=== PATIENT | male | born 1980 | race Caucasian/White ===

== ENCOUNTER 2020-03-23 08:54 | Emergency (ER) | payer OTHER, SELFPAY ==
[2020-03-23] VITALS (9 sets, daily range): BP systolic 162–196; BP diastolic 88–118; PULSE 75–92; RESP 16; TEMP 37.3; O2SAT 95–99; BMI 25.0
--- NOTE | 2020-03-23 09:12 | DI.CT.S_ITS ---
PROCEDURE: CT MASTOID TEMPORAL INDICATIONS: right pain, vestibular neuritis COMPARISON: None. TECHNIQUE: Noncontrast 0.6 mm thick direct axial and coronal sections acquired through each temporal bone separately. FINDINGS: Image quality: Excellent. RIGHT: External auditory canal: Canal has a normal appearance. Middle ear: The middle ear structures, including the ossicles and tympanic membrane, appear normal. No abnormal fluid or soft tissue density. Inner ear: Inner ear is normally formed and appears unremarkable. Facial nerve appears normal throughout is course. Internal auditory canal is normal in caliber with no CT evidence of a soft tissue mass or bony erosion. Mastoids: Mastoid air cells are clear. LEFT: External auditory canal: Canal has a normal appearance. Middle ear: The middle ear structures, including the ossicles and tympanic membrane, appear normal. No abnormal fluid or soft tissue density. Inner ear: Inner ear is normally formed and appears unremarkable. Facial nerve appears normal throughout its course. Internal auditory canal is normal in caliber with no CT evidence of a soft tissue mass or bony erosion. Mastoids: Mastoid air cells are clear. MISCELLANEOUS: Visualized surrounding bones appear unremarkable. Visualized intracranial structures, including the cerebellopontine angle cisterns, appear normal. IMPRESSION: Normal CT of the temporal bones. Dictated by: Facundo Vickers M.D. on 03/23/2020 at 10:25 Approved by: Facundo Vickers M.D. on 03/23/2020 at 10:27
--- NOTE | 2020-03-23 09:21 | ED_ITS ---
HPI - Headache General Chief Complaint: Headache Stated Complaint: right sided vestibulor neuronitis x3 days Time Seen by Provider: 03/23/20 09:02 Source: patient Mode of arrival: Ambulatory Limitations: no limitations History of Present Illness HPI Narrative: Patient is a 39-year-old male with recent diagnosis of vestibular neuritis currently being treated by ENT presenting with new onset acute severe headache ongoing for the last 4 days. He said he was watching TV when it suddenly started on the right side is is quite severe. He is not typically get headaches. He has been taking IV Profant in left to 3000 mg a day to help with his pain. He says it does typically help but he can not tell where in it wears off. He denies any nausea or vomiting. No weakness numbness or tingling. She says it is on the right side it starts behind his right ear and spreads up. He has no known otitis media or externa. He said when the vestibular neuritis was 1st diagnosed they look for infection and there was none. But he is tender to palpation postauricular area. He says overall becoming quite unbearable. He states that the vertigo associated with a vestibular neuritis is actually getting better. He denies any fever or chills. MD Complaint: headache Onset (ago): day(s) (4) Onset description: sudden Location: right Severity: severe Quality: sharp Relieving factors: NSAIDs Exacerbating factors: movement of head/neck Associated symptoms: none Related Data Home Medications Medication Instructions Recorded Confirmed ascorbate calcium (vitamin C) 500 500 mg PO DAILY 08/21/19 02/28/20 mg tablet multivitamin 1 tab PO DAILY 08/21/19 02/28/20 Previous Rx's Medication Instructions Recorded meclizine 25 mg tablet 25 mg PO TID-QID PRN #30 tab 02/28/20 ondansetron 4 mg disintegrating 4 mg PO BID PRN #14 tab 02/28/20 tablet hydrocodone-acetaminophen [[place]] 1 tab PO Q6H PRN #10 tab 03/23/20 meloxicam 15 mg PO DAILY PRN #30 tab 03/23/20 Allergies Allergy/AdvReac Type Severity Reaction Status Date / Time morphine AdvReac Mild STOMACH Verified 03/23/20 10:39 PAIN Review of Systems Review of Systems ROS Unobtainable: All systems reviewed & are unremarkable except as noted in HPI and below Constitutional Constitutional: Denies frequent falls and Reports headache(s) Eyes Eyes: Denies change in vision, Denies eye discharge, Denies irritation and Denies loss of vision ENT Ears, Nose, Mouth, and Throat: Reports as per HPI, Reports vertigo and Reports headache(s) Cardiovascular Cardiovascular: Denies chest pain, Denies irregular heart rhythm, Denies lightheadedness, Denies palpitations, Denies dyspnea, Denies dyspnea on exertion and Denies orthopnea Respiratory Respiratory: Denies cough, Denies dyspnea, Denies dyspnea on exertion and Denies wheezing Gastrointestinal Gastrointestinal: Denies abdominal pain, Denies change in bowel habits, Denies diarrhea, Denies nausea and Denies vomiting Musculoskeletal Musculoskeletal: Denies back pain, Denies myalgias, Denies arthralgias and Denies numbness Integumentary/Breasts Skin/Breast: Denies pruritus, Denies erythema, Denies rash and Denies wounds Neurologic Neurologic: Reports as per HPI, Reports vertigo, Denies frequent falls, Reports headache(s), Denies lack of coordination, Denies localized weakness, Denies loss of vision, Denies numbness and Denies other visual disturbances Endocrine Endocrine: Denies palpitations Allergic/Immunologic Allergic/Immunologic: Denies wheezing Patient History Medical History Dizziness Vestibular neuritis Social History marital status: Smoking Status: Never smoker alcohol intake: current (1 A DAY ) substance use type: marijuana (ON OCCASION ) Smoking Status: Never smoker alcohol intake frequency: 0-2 drinks per day Substance Use Type: does not use Exam Initial Vital Signs Initial Vital Signs: Vital Signs Pulse Oximetry 97 03/23/20 08:59 GENERAL: Well-appearing, well-nourished and in no acute distress. HEENT: Head atraumatic,EOMI, pupils reactive, face symmetric, moist mucous membranes EARS: Tympanic membranes visualized, no erythema or bulging, no hemotympanum right ear tender over mastoid CARDIOVASCULAR: Regular rate and rhythm without murmurs, rubs or gallops. RESPIRATORY: Breath sounds equal bilaterally, no wheezes rales or rhonchi. ABDOMEN: Soft, nontender. Normoactive bowel sounds all 4 quadrants. No guarding or rebound. EXTREMITIES: Normal range of motion, no clubbing or edema. Neurovascularly intact NEUROLOGICAL: Alert and oriented x4.Normal gait and speech. Cranial nerves II through XII grossly intact. Good [id number], good [id number], strength equal bilaterally, no dysarthria or aphasia, sensation in tact to soft touch bilaterally, no visual changes, no facial droop SKIN: Warm, dry, no laceration, no petechiae, no rashes or lesions. Course Orders Ordered: ED Orders 03/23/20 09:12 CT mastoid temporal Stat 03/23/20 09:20 C-Reactive Protein Quant Stat Complete Blood Count AUTO DIFF Stat Comprehensive Metabolic Panel Stat Erythrocyte Sedimentation Rate Stat 03/23/20 09:52 CT head/brain wo con Stat Discontinued Medications Ketorolac Tromethamine (Ketorolac 60 Mg/2 Ml Vial) 15 mg IV NOW ONE Stop: 03/23/20 10:38 Last Admin: 03/23/20 11:08 Dose: 15 mg Documented by: PETERSON Vital Signs Vital signs: Vital Signs - 8 hr 03/23/20 08:59 03/23/20 09:00 03/23/20 09:01 Temperature 99.1 F Pulse Rate 92 H 91 H Respiratory Rate 16 Blood Pressure 195/118 H 196/107 H Pulse Oximetry 97 96 95 03/23/20 09:11 03/23/20 09:41 03/23/20 09:42 Temperature Pulse Rate 86 78 75 Respiratory Rate Blood Pressure 182/106 H 181/101 H Pulse Oximetry 96 96 95 03/23/20 10:00 03/23/20 10:30 03/23/20 11:00 Temperature Pulse Rate 79 81 86 Respiratory Rate Blood Pressure 162/95 H 172/88 H Pulse Oximetry 96 96 96 MDM - Headache Lab Data Attestation: I reviewed the patient's lab results. Result diagrams: 03/23/20 09:20 03/23/20 09:20 Labs: Lab Results 03/23/20 03/23/20 Range/Units 09:20 09:20 WBC 10.0 (4.5-11.0) X10^3/uL RBC 4.88 (4.5-5.9) X10^6/uL Hgb 14.6 (13.5-17.5) g/dL Hct 44.0 (41-53) % MCV 90.3 (80-100) fL MCH 29.9 (26-34) PG MCHC 33.1 (30-36) % RDW 13.3 (11.6-14.8) % Plt Count 293 (150-400) X10^3/uL Neut % (Auto) 90.4 H (50-75) % Lymph % (Auto) 6.8 L (25-40) % Bay % (Auto) 1.9 L (3-14) % Eos % (Auto) 0.4 L (2-4) % Baso % (Auto) 0.5 (0-2) % Neut # (Auto) 9100 H (2693-6614) /uL Lymph # (Auto) 700 L (6227-9704) /uL Bay # (Auto) 200 (0-900) /uL Eos # (Auto) 0 (0-450) /uL Baso # (Auto) 100 (0-100) /uL ESR 4 (0-15) MM/HR Sodium 136 L (137-145) mmol/L Potassium 3.9 (3.4-5.1) mmol/L Chloride 105 (98-107) mmol/L Carbon Dioxide 25 (22-32) mmol/L BUN 12 (9-20) mg/dL Creatinine 0.92 (0.66-1.25) mg/dL Estimated GFR > 60.0 (>60) mL/min BUN/Creatinine Ratio 13.0 (6-22) Glucose 106 H (70-100) mg/dL Calcium 9.0 (8.4-10.2) mg/dL Total Bilirubin 0.9 (0.2-1.3) mg/dL AST 23 (17-59) IU/L ALT 48 (<50) IU/L Alkaline Phosphatase 74 (38-126) U/L C-Reactive Protein < 0.5 (<1.0) mg/dL Total Protein 7.3 (6.3-8.2) g/dL Albumin 4.3 (3.5-5.0) g/dL Globulin 3.0 (1.7-4.1) g/dL Albumin/Globulin Ratio 1.4 (1.0-2.8) Imaging Data CT scan - head: Radiologist's Impression: PROCEDURE: XR CHEST 1V INDICATIONS: short of breath TECHNIQUE: One view of the chest was acquired. COMPARISON: [facility], , XR CHEST 2V, 03/16/2020, 12:34. [facility], , CHEST 2 VIEW, 09/06/2012, 16:29. FINDINGS: Surgical changes and devices: None. Lungs and pleura: Lungs are clear except for a mild chronic interstitial prominence. No pleural effusions or pneumothorax. Mediastinum: Mediastinal contours appear normal. Heart size is normal. Bones and chest wall: No suspicious bony lesions. Overlying soft tissues appear unremarkable. Prior vertebroplasty bone cement near the thoracolumbar junction and middle 3rd of the thoracic spine. IMPRESSION: Chronic interstitial prominence accentuated by reduced inspiratory volume. Dictated by: Rosendo Joseph M.D. on 03/23/2020 at 10:22 ct mastoids: Radiologist's Impression: PROCEDURE: CT MASTOID TEMPORAL INDICATIONS: right pain, vestibular neuritis COMPARISON: None. TECHNIQUE: Noncontrast 0.6 mm thick direct axial and coronal sections acquired through each temporal bone separately. FINDINGS: Image quality: Excellent. RIGHT: External auditory canal: Canal has a normal appearance. Middle ear: The middle ear structures, including the ossicles and tympanic membrane, appear normal. No abnormal fluid or soft tissue density. Inner ear: Inner ear is normally formed and appears unremarkable. Facial nerve appears normal throughout is course. Internal auditory canal is normal in caliber with no CT evidence of a soft tissue mass or bony erosion. Mastoids: Mastoid air cells are clear. LEFT: External auditory canal: Canal has a normal appearance. Middle ear: The middle ear structures, including the ossicles and tympanic membrane, appear normal. No abnormal fluid or soft tissue density. Inner ear: Inner ear is normally formed and appears unremarkable. Facial nerve appears normal throughout its course. Internal auditory canal is normal in caliber with no CT evidence of a soft tissue mass or bony erosion. Mastoids: Mastoid air cells are clear. MISCELLANEOUS: Visualized surrounding bones appear unremarkable. Visualized intracranial structures, including the cerebellopontine angle cisterns, appear normal. IMPRESSION: Normal CT of the temporal bones. Dictated by: Facundo Vickers M.D. on 03/23/2020 at 10:25 MDM Narrative Medical decision making narrative: Patient initially found to be quite hype rtensive he states he does not have a history of high blood pressure. Blood pressure improved while in the ED. Head CT and CT of mastoids are negative. A believe his headache to likely be secondary to vestibular neuritis. Discussed pain management with him. He is taking quite a lot of ibuprofen will change him over to meloxicam and him hydrocodone for severe pain if needed. Discharge Plan Departure Patient Disposition: Home Clinical Impression: Vestibular neuritis Qualifiers: Laterality: right Qualified Code(s): H81.21 - Vestibular neuronitis, right ear Instructions: DI for Headache Activity Restrictions/Additional Instructions: *You have been diagnosed with vestibular neuritis *What to do: Increase activity as tolerated hopefully this improves for you. *Continue to take medications as directed--> S[facility] TO [facility] [place] Meloxicam 15 mg once daily--do not combine with any other NSAIDs such as naproxen or Aleve ibuprofen Motrin etc [place] 1 tablet every 6 hours if needed for severe pain *Follow up with your primary care provider in 2-3 days *Return to ER if you should have increasing pain, dizziness persistent vomiting, fever or any new, worsening or concerning symptoms CONTROLLED SUBSTANCE DISCHARGE (Narcotoic/benzodiazepine/Flexeril/Phenergan) 1. You have been prescribed narcotic medications, it does have acetaminophen/Tylenol/paracetamol in it so do not take extra Tylenol or Tylenol containing products TRAMADOL DOES NOT CONTAIN TYLENOL 2. Please understand that we cannot provide further refills of narcotics, benzodiazepines or controlled substances through the ED and her pain management will need to be through your provider. 3. While on these medications you cannot drive or operate heavy machinery. 4. You cannot sign legal documents or perform any duties such as this. 5. As long as you're taking opiate pain medications he should also be taking a stool softener such as Colace, Dulcolax, MiraLAX or prune juice, to help avoid constipation. Prescriptions: New meloxicam 15 mg tablet 15 mg PO DAILY PRN (Reason: pain) Qty: 30 RF: 0 hydrocodone-acetaminophen [[place]] 5-325 mg tablet 1 tab PO Q6H PRN (Reason: pain) Qty: 10 RF: 0 No Action meclizine 25 mg tablet 25 mg PO TID-QID PRN (Reason: dizziness) Qty: 30 RF: 0 ondansetron 4 mg tablet,disintegrating 4 mg PO BID PRN (Reason: nausea and vomiting) Qty: 14 RF: 0 multivitamin Tablet 1 tab PO DAILY RF: 0 ascorbate calcium (vitamin C) 500 mg tablet 500 mg PO DAILY RF: 0 Referrals: [facility] [Outside]
[2020-03-23 09:32] LABS: Add Manual Diff / Slide Review NO; Basophils Absolute Auto 100 /uL (0-100); Basophils Percent Auto 0.5 % (0-2); Eosinophils Absolute Auto 0 /uL (0-450); Eosinophils Percent Auto 0.4 % (2-4); Hemoglobin 14.6 g/dL (13.5-17.5); Lymphocytes Absolute Auto 700 /uL (1100-4500); Lymphocytes Percent Auto 6.8 % (25-40); Mean Corpuscular HGB Conc 33.1 % (30-36); Mean Corpuscular Hemoglobin 29.9 PG (26-34); Mean Corpuscular Volume 90.3 fL (80-100); Monocytes Absolute Auto 200 /uL (0-900); Monocytes Percent Auto 1.9 % (3-14); Neutrophils Absolute Auto 9100 /uL (1500-7000); Neutrophils Percent Auto 90.4 % (50-75); Platelet Count 293 X10^3/uL (150-400); Red Blood Cell Count 4.88 X10^6/uL (4.5-5.9); Red Cell Distribution Width 13.3 % (11.6-14.8)
[2020-03-23 09:44] LABS: Alanine Aminotransferase 48 IU/L (<50); Albumin 4.3 g/dL (3.5-5.0); Albumin Globulin Ratio 1.4 (1.0-2.8); Alkaline Phosphatase 74 U/L (38-126); Aspartate Aminotransferase 23 IU/L (17-59); Bilirubin Total 0.9 mg/dL (0.2-1.3); Blood Urea Nitrogen 12 mg/dL (9-20); Carbon Dioxide 25 mmol/L (22-32); Chloride 105 mmol/L (98-107); Estimated Glomerular Filt Rate > 60.0 mL/min (>60); Glucose 106 mg/dL (70-100); HEMOLYSIS < 15 (0-50); Potassium 3.9 mmol/L (3.4-5.1); Sodium 136 mmol/L (137-145); Total Protein 7.3 g/dL (6.3-8.2)
[2020-03-23 09:45] LABS: C-Reactive Protein Quant < 0.5 mg/dL (<1.0)
--- NOTE | 2020-03-23 09:52 | DI.CT.S_ITS ---
PROCEDURE: CT HEAD/BRAIN WO CON INDICATIONS: Right-sided headaches TECHNIQUE: Noncontrast 4.5 mm thick angled axial sections acquired from the foramen magnum to the vertex, with coronal and sagittal reformats. For radiation dose reduction, the following was used: automated exposure control, adjustment of mA and/or kV according to patient size. COMPARISON: None. FINDINGS: Image quality: Excellent. CSF spaces: Basal cisterns are patent. No extra-axial fluid collections. Ventricles are normal in size and shape. Brain: No midline shift. No intracranial masses or hemorrhage. Estevez-white matter interface is normal. Skull and face: Calvarium and visualized facial bones are intact, without suspicious lesions. Sinuses: Visualized sinuses and mastoids are clear. IMPRESSION: Unremarkable intracranial study, without an imaging explanation found for the patient's presenting history of headache. Dictated by: Stanley Monae M.D. on 03/23/2020 at 9:13 Approved by: Stanley Monae M.D. on 03/23/2020 at 9:14
[2020-03-23 09:54] LABS: Erythrocyte Sedimentation Rate 4 MM/HR (0-15)
[2020-03-23] MEDS: KETOROLAC 60 MG/2 ML VIAL 15 MG IV (11:08)
== END 2020-03-23 11:36 | disposition home or self-care (01) ==
PROVIDERS: Emergency Provider Emergency Medicine
DX: H81.21 Vestibular neuronitis, right ear (principal); R06.02 Shortness of breath; R03.0 Elevated blood-pressure reading, without diagnosis of hypertension
CPT/HCPCS: 36415; 70450; 70480; 80053; 85025; 85651; 86140; 96374; 99283; 99284; J1885

== ENCOUNTER → 2020-04-19 10:46 | Outpatient (CLI) | payer OTHER, SELFPAY ==
--- NOTE | 2020-04-19 | DI.RAD.S_ITS ---
PROCEDURE: XR EYE FOREIGN BODY LT INDICATIONS: MRI SCREENING TECHNIQUE: A single view of the orbits was acquired. COMPARISON: None. FINDINGS: Soft tissues: No metallic foreign bodies are visualized around the orbits. Bones: Bony structures appear unremarkable. Visualized sinuses appear clear. IMPRESSION: No metallic foreign body is identified in the region of the orbits. Dictated by: Amanuel Treadwell M.D. on 04/19/2020 at 11:09 Approved by: Amanuel Treadwell M.D. on 04/19/2020 at 11:09
--- NOTE | 2020-04-19 | DI.MRI.S_ITS ---
PROCEDURE: MR BRAIN (IAC) WWO CON INDICATIONS: Headache, unspecified TECHNIQUE: Noncontrast sagittal T1 spin echo, axial FLAIR, axial gradient echo, axial diffusion and ADC through the brain. Axial thin-slice 3D CISS, coronal TruFISP, axial T1 spin echo with fat saturation through the internal auditory canals. After the administration of contrast, thin slice axial and coronal T1 spin echo with fat saturation through the internal auditory canals, and axial T1 spin echo with fat saturation through the brain. COMPARISON: None. FINDINGS: Image quality: Excellent. Cerebellopontine angles: No cerebellopontine angle masses. Inner ear structures appear normally formed. No suspicious enhancement in the internal auditory canal or along the course of the 7th or 8th cranial nerves. CSF spaces: Ventricles are normal in size and shape. No extra-axial fluid collections. Basal cisterns are patent. Brain: No intracranial bleeds or mass effects. Estevez-white matter interface is intact. No abnormal intracranial enhancement. Diffusion weighted images demonstrate no acute ischemic insults. Brainstem appears normal. Normal intravascular flow voids are present. Skull and face: Calvarial marrow signal is normal. Orbits appear normal. Sinuses: Nodular mucosal thickening versus mucous retention cysts in the maxillary sinuses, left greater than right. Otherwise clear paranasal sinuses. IMPRESSION: No acute or otherwise significant finding to explain headache. Dictated by: Facundo Vickers M.D. on 04/19/2020 at 11:17 Approved by: Facundo Vickers M.D. on 04/19/2020 at 11:23
== END ==
PROVIDERS: PCP Internal Medicine; Referring Provider Otolaryngology; Visit Provider Otolaryngology
DX: R51.9 Headache, unspecified (principal); H81.21 Vestibular neuronitis, right ear
CPT/HCPCS: 70030; 70553

== ENCOUNTER → 2020-05-03 10:41 | Outpatient (CLI) | payer OTHER, SELFPAY ==
[2020-05-03 11:18] LABS: Blood Urea Nitrogen 12 mg/dL (9-20); Carbon Dioxide 30 mmol/L (22-32); Chloride 106 mmol/L (98-107); Estimated Glomerular Filt Rate > 60.0 mL/min (>60); Glucose 82 mg/dL (70-100); HEMOLYSIS < 15 (0-50); Potassium 4.6 mmol/L (3.4-5.1); Sodium 138 mmol/L (137-145)
== END ==
PROVIDERS: PCP Internal Medicine; Referring Provider Internal Medicine; Visit Provider Internal Medicine
DX: I10 Essential (primary) hypertension (principal)
CPT/HCPCS: 36415; 80048